=== PATIENT | male | born 1935 | race Caucasian/White ===

== ENCOUNTER 2017-11-19 17:42 | Observation (INO) ==
--- NOTE | 2017-11-19 18:33 | ED ---
HPI General Chief Complaint: Chest Pain Stated Complaint: Chest pain Time Seen by Provider: 11/19/17 18:14 Source: patient Mode of arrival: ambulatory Limitations: no limitations History of Present Illness HPI narrative: Patient is a 82-year-old male presenting to emerge from for evaluation of chest pain. Patient states the pain started at 1630, it was midsternal and left anterior chest with radiation to his back. Pain was a 10 out of 10 at that time, he states he felt as if he was going to pass out and lightheaded. He reports that he had a headache which was waxing and waning this afternoon. He denies any headache now. Patient denies any nausea, vomiting, shortness of breath. Symptom onset was sudden, symptoms are moderate in nature. There are no alleviating factors. Symptoms occurred at rest. Patient reports a history of diabetes, COPD, hypertension, hyperlipidemia. He was a former smoker. He had a nuclear stress test several years ago. He denies any history of heart attack. Complete Quality Measures for STEMI Alert Patients Related Data Home Medications Medication Instructions Recorded Confirmed atorvastatin 80 mg PO DAILY 11/19/17 11/19/17 ferrous sulfate 325 mg PO DAILY 11/19/17 11/19/17 fluticasone-vilanterol [Breo 1 inh INHALATION DAILY 11/19/17 11/19/17 Ellipta] furosemide [Lasix] 40 mg PO BID 11/19/17 11/19/17 glipizide 5 mg PO DAILY 11/19/17 11/19/17 losartan-hydrochlorothiazide 1 tab PO DAILY 11/19/17 11/19/17 metformin 1,000 mg PO BID 11/19/17 11/19/17 pantoprazole [Protonix] 40 mg PO DAILY 11/19/17 11/19/17 potassium chloride 10 meq PO DAILY 11/19/17 11/19/17 Allergies Allergy/AdvReac Type Severity Reaction Status Date / Time Horse/Equine Containing Allergy Severe Hives Unverified 11/19/17 18:15 Products Review of Systems Except as stated in HPI: all other systems reviewed are negative [facility] Medical History Medical History COPD (chronic obstructive pulmonary disease) (Acute) Diabetes (Acute) GERD (gastroesophageal reflux disease) (Acute) Hernia (Acute) Hyperchloremia (Acute) Hypertension (Acute) Surgical History Surgical History History of cholecystectomy (Acute) History of nasal surgery (Acute) Social History Social History Substance History: No History of Abuse Smoking Status: Former smoker How Often Do You Have a Drink Containing Alcohol: Never Recent Travel in [facility] within the Last 8 Weeks: No Recent Out of Country Travel within the Last 8 Weeks: No Immunization History Tetanus Immunization: Never Vaccinated Hx Influenza Vaccine This Season: No Exam Narrative Exam Narrative: GENERAL: Well-developed, well nourished, alert elderly male. Presenting in no acute distress. SKIN: Focused skin assessment warm/dry. HEAD: Atraumatic. Normocephalic. EYES: Pupils equal and round. No scleral icterus. No injection or drainage. ENT: No nasal bleeding or discharge. Mucous membranes pink and moist. NECK: Trachea midline. No JVD. CARDIOVASCULAR: Regular rate and rhythm. No murmur appreciated. RESPIRATORY: No accessory muscle use. Diminished bilaterally in bases, scattered faint expiratory wheezes. GASTROINTESTINAL: Abdomen soft, non-tender, nondistended. Hepatic and splenic margins not palpable. MUSCULOSKELETAL: No obvious deformities. No clubbing. No cyanosis. No edema. NEUROLOGICAL: Awake and alert. No obvious cranial nerve deficits. Motor grossly within normal limits. Normal speech. PSYCHIATRIC: Appropriate mood and affect; insight and judgment normal. Course Initial Documented Vital Signs Temperature 97.8 F 11/19/17 17:48 Pulse Rate 92 H 11/19/17 17:48 Respiratory Rate 20 11/19/17 17:48 Blood Pressure 144/67 H 11/19/17 17:48 Pulse Oximetry 98 11/19/17 17:48 Last Documented Vital Signs Temperature 97.8 F 11/19/17 17:48 Pulse Rate 87 11/19/17 18:25 Respiratory Rate 18 11/19/17 18:25 Blood Pressure 167/70 H 11/19/17 18:25 Pulse Oximetry 98 11/19/17 18:25 Medical Decision Making MDM Narrative Medical decision making narrative: Patient is an 82-year-old male that presented to the emergency department for evaluation of abrupt onset of chest pain that occurred at 1630 this afternoon. Patient is well-appearing, he is in no acute distress. Patient's vital signs are stable. Patient was given additional 243 mg of aspirin, Nitropaste was placed on his chest. Chest x-ray with no acute findings, labs reviewed, no acute abnormalities. Patient was given a DuoNeb treatment in the emergency department, this was ordered because patient missed his home dose of his medication. Patient will be admitted to the chest pain center, patient is agreeable, patient and family were advised in all findings. Admit orders placed. Differential Diagnosis Differential Diagnosis: ACS vs [place] vs GERD vs metabolic abnormality vs other Lab Data Lab results reviewed: Yes I reviewed the patient's lab results. Result diagrams: 11/19/17 18:31 08 18:31 Lab Results 11/19/17 11/19/17 11/19/17 Range/Units 18:31 18:31 18:31 WBC 6.5 (4.0-11.0) th/mm3 RBC 3.74 L (4.50-5.90) mil/mm3 Hgb 12.0 L (13.0-17.0) gm/dL Hct 34.8 L (39.0-51.0) % MCV 93.1 (80.0-100.0) fL MCH 32.1 (27.0-34.0) pg MCHC 34.4 (32.0-36.0) % RDW 14.8 (11.6-17.2) % Plt Count 301 (150-450) th/mm3 MPV 7.6 (7.0-11.0) fL Neut % (Auto) 77.4 H (16.0-70.0) % Lymph % (Auto) 10.2 (9.0-44.0) % [place] % (Auto) 7.4 (0.0-8.0) % Eos % (Auto) 4.3 H (0.0-4.0) % Baso % (Auto) 0.7 (0.0-2.0) % Neut # (Auto) 5.0 (1.8-7.7) th/mm3 Lymph # (Auto) 0.7 L (1.0-4.8) th/mm3 [place] # (Auto) 0.5 (0.0-0.9) th/mm3 Eos # (Auto) 0.3 (0.0-0.4) th/mm3 Baso # (Auto) 0.0 (0.0-0.2) th/mm3 WBC Differential . Differential Comment Auto diff final PT 9.9 (9.8-11.6) sec INR 1.0 Ratio APTT 23.0 L (24.3-30.1) sec Sodium (136-145) meq/L Potassium (3.5-5.1) meq/L Chloride (98-107) meq/L Carbon Dioxide (21.0-32.0) meq/L Anion Gap (5-15) meq/L BUN (7-18) mg/dL Creatinine (0.60-1.30) mg/dL Estimated GFR (>89) mL/min Random Glucose (74-106) mg/dL Calcium (8.5-10.1) mg/dL Magnesium (1.5-2.5) mg/dL Total Bilirubin (0.2-1.0) mg/dL AST (15-37) U/L ALT (12-78) U/L Alkaline Phosphatase (45-117) U/L Total Creatine Kinase (39-308) U/L Troponin I Less than 0.02 L (0.02-0.05) ng/mL Total Protein (6.4-8.2) g/dL Albumin (3.4-5.0) g/dL Lipase 122 (73-393) U/L 11/19/17 Range/Units 18:31 WBC (4.0-11.0) th/mm3 RBC (4.50-5.90) mil/mm3 Hgb (13.0-17.0) gm/dL Hct (39.0-51.0) % MCV (80.0-100.0) fL MCH (27.0-34.0) pg MCHC (32.0-36.0) % RDW (11.6-17.2) % Plt Count (150-450) th/mm3 MPV (7.0-11.0) fL Neut % (Auto) (16.0-70.0) % Lymph % (Auto) (9.0-44.0) % [place] % (Auto) (0.0-8.0) % Eos % (Auto) (0.0-4.0) % Baso % (Auto) (0.0-2.0) % Neut # (Auto) (1.8-7.7) th/mm3 Lymph # (Auto) (1.0-4.8) th/mm3 [place] # (Auto) (0.0-0.9) th/mm3 Eos # (Auto) (0.0-0.4) th/mm3 Baso # (Auto) (0.0-0.2) th/mm3 WBC Differential Differential Comment PT (9.8-11.6) sec INR Ratio APTT (24.3-30.1) sec Sodium 143 (136-145) meq/L Potassium 3.9 (3.5-5.1) meq/L Chloride 104 (98-107) meq/L Carbon Dioxide 29.7 (21.0-32.0) meq/L Anion Gap 9 (5-15) meq/L BUN 25 H (7-18) mg/dL Creatinine 1.21 (0.60-1.30) mg/dL Estimated GFR 57 L (>89) mL/min Random Glucose 102 (74-106) mg/dL Calcium 9.0 (8.5-10.1) mg/dL Magnesium 2.2 (1.5-2.5) mg/dL Total Bilirubin 0.8 (0.2-1.0) mg/dL AST 129 H (15-37) U/L ALT 76 (12-78) U/L Alkaline Phosphatase 105 (45-117) U/L Total Creatine Kinase 107 (39-308) U/L Troponin I (0.02-0.05) ng/mL Total Protein 6.4 (6.4-8.2) g/dL Albumin 3.7 (3.4-5.0) g/dL Lipase (73-393) U/L Imaging Data Radiologist's impression: Chest X-Ray 11/19/17 18:15 CONCLUSION: No acute findings. Stable scarring and cylindrical bronchiectasis left lower lobe. Discharge Plan Discharge Disposition Patient Disposition: 30 Still Patient Discharge Condition Condition: Stable Discharge Details Diagnosis: Chest pain Physicians Team ED Provider: Bishop Hawkins ED Midlevel Provider: Ivette Guillermo Primary Care Provider: Primary Care Dasha Castillo Attending Provider: Gentry Cortes Other Providers: [employer] Status ED Status: Admitted Observation Patient
[2017-11-19 18:50] LABS: Baso % (Auto) 0.7 % (0.0-2.0); Eos # (Auto) 0.3 th/mm3 (0.0-0.4); Eos % (Auto) 4.3 % (0.0-4.0); Hematocrit 34.8 % (39.0-51.0); Lymph # (Auto) 0.7 th/mm3 (1.0-4.8); Lymph % (Auto) 10.2 % (9.0-44.0); Mean Corpuscular HGB Conc 34.4 % (32.0-36.0); Mean Corpuscular Hemoglobin 32.1 pg (27.0-34.0); Mean Corpuscular Volume 93.1 fL (80.0-100.0); Mean Platelet Volume 7.6 fL (7.0-11.0); Mono # (Auto) 0.5 th/mm3 (0.0-0.9); Mono % (Auto) 7.4 % (0.0-8.0); Neut % (Auto) 77.4 % (16.0-70.0); Platelet Count 301 th/mm3 (150-450); Red Blood Count 3.74 mil/mm3 (4.50-5.90); Red Cell Distribution Width 14.8 % (11.6-17.2); White Blood Count 6.5 th/mm3 (4.0-11.0)
--- NOTE | 2017-11-19 18:55 | XR ---
EXAM DATE: 11/19/2017 6:51 PM EDT AGE/SEX: 82 years / Male INDICATIONS: . Chest pain CLINICAL DATA: This is the patient's initial encounter. Patient reports that signs and symptoms have been present for 1 day and indicates a pain score of 4/10. MEDICAL/SURGICAL HISTORY: . Hypertension. Chronic obstructive pulmonary disease. Gastroesophage al reflux disease. Hiatal hernia, Diabetes. . Cholecystectomy. Vasectomy COMPARISON: [facility] [place], [place], CT ABDOMEN & PELVIS W CONTRAST, 07/25/2015. . FINDINGS: There is chronic scarring and cylindrical bronchiectasis at the left lung base which is similar to pr ior study from 2016. No new infiltrate or effusion. No pneumothorax. Heart size within normal limits. Stable calcified granulomata in the lungs. CONCLUSION: No acute findings. Stable scarring and cylindrical bronchiectasis left lower lobe. Electronically signed by: Sachin Rodriguez MD 11/19/2017 6:53 PM EDT
[2017-11-19 19:04] LABS: Prothrombin Time 9.9 sec (9.8-11.6)
[2017-11-19 19:07] LABS: Albumin 3.7 g/dL (3.4-5.0); Anion Gap 9 meq/L (5-15); Aspartate Aminotransferase 129 U/L (15-37); Blood Urea Nitrogen 25 mg/dL (7-18); Carbon Dioxide 29.7 meq/L (21.0-32.0); Chloride 104 meq/L (98-107); Glomerular Filtration Rate 57 mL/min (>89); Glucose,Random 102 mg/dL (74-106); Magnesium 2.2 mg/dL (1.5-2.5); Potassium 3.9 meq/L (3.5-5.1); Sodium 143 meq/L (136-145)
[2017-11-19 19:08] LABS: Alanine Aminotransferase 76 U/L (12-78)
[2017-11-19 19:09] LABS: Lipase 122 U/L (73-393)
[2017-11-19 19:11] LABS: Alkaline Phosphatase 105 U/L (45-117); Creatine Kinase 107 U/L (39-308); Total Protein 6.4 g/dL (6.4-8.2)
[2017-11-19] MEDS ORDERED: Acetaminophen 500 MG Tablet PO PRN (19:17)
[2017-11-19] MEDS ORDERED: Aluminum/Magnesium/Simethacone Susp 30 ML UDC PO ONE (19:23)
[2017-11-19 19:30] LABS: Creatine Kinase MB 3.3 ng/mL (0.5-3.6)
--- NOTE | 2017-11-19 21:52 | CT ---
EXAM DATE: 11/19/2017 9:25 PM EDT AGE/SEX: 82 years / Male INDICATIONS: Chest and back pain. CLINICAL DATA: This is the patient's initial encounter. Patient reports that signs and symptoms have been present for 1 day and indicates a pain score of 10/10. MEDICAL/SURGICAL HISTORY: Diabetes. Chronic obstructive pulmonary disease. Gastroesophageal reflu x disease. Hypertension. Cholecystectomy. RADIATION DOSE: 8.32 CTDI (mGy) COMPARISON: No prior exams available for comparison. TECHNIQUE: Volumetric scanning was performed using a multi-row detector CT scanner during bolus infu nahid of 90 ml Omnipaque 350 (iohexol) nonionic water-soluble contrast as a single exam dose. The da ta was post processed with a variety of visualization algorithms including full volume maximum intens ity projection, multi-planar sliding thin slab reformation, curved planar reformation, and surface re ndering techniques. Using automated exposure control and adjustment of the mA and/or kV according to patient size, radiation dose was kept as low as reasonably achievable to obtain optimal diagnostic q uality images. DICOM format image data is available electronically for review and comparison. FINDINGS: There is no thoracic or abdominal aortic dissection or significant aneurysmal dilatation. There is mi ld to moderate atherosclerotic plaque present throughout the aorta. Moderate coronary artery calcifications noted. Calcified granulomata noted in the upper right lung. T here is chronic bronchiectasis, peribronchial thickening, scarring and distal airway disease at the l eft lung very similar to an abdomen CT from 2016. Stable small liver cysts present. No acute findings in the spleen, adrenals, kidneys or pancreas. Pre vious cholecystectomy. There is colonic diverticulosis without diverticulitis. Small right-sided bladder diverticulum. CONCLUSION: 1. Negative for thoracic and abdominal dissection or aneurysm. 2. Colonic diverticulosis without diverticulitis. 3. Stable small hepatic cysts. Electronically signed by: Sachin Rodriguez MD 11/19/2017 9:51 PM EDT
[2017-11-19 22:04] LABS: Creatine Kinase 104 U/L (39-308)
[2017-11-19] MEDS ORDERED: Temazepam 15 MG Capsule PO PRN (22:58)
[2017-11-19 23:02] LABS: Bilirubin,Urine Negative (Negative); Clarity,Urine Clear (Clear); Color,Urine Yellow (Yellw/Straw); Glucose,Urine (UA) Negative (Negative); Hyaline Casts,Urine 13 /lpf (0-3); Leukocyte Esterase,Urine Trace (Negative); Mucus,Urine Few /lpf (Occasional); Nitrite,Urine Negative (Negative); Specific Gravity,Urine 1.013 (1.002-1.035)
[2017-11-20 02:10] LABS: Creatine Kinase 85 U/L (39-308)
[2017-11-20 04:31] VITALS: O2SAT 100
[2017-11-20 08:22] VITALS: TEMP 97.8
--- NOTE | 2017-11-20 08:53 | P.HPCA ---
History of Present Illness Primary Care Physician: Finn MONGE Chief Complaint: Epigastric pain History of Present Illness: 82-year-old male with history of COPD, type 2 diabetes, hypertension, hyperlipidemia, and O2 dependent nightly presents emergency room for further evaluation epigastric pain. Onset 4:30 PM while eating a donut and drinking a cup of coffee. Location epigastric characterized as a moderate to severe ache. No radiation. Associated symptoms included nausea, headache, acid reflex, and diaphoresis. No vomiting. to discern if he was dyspneic during time due to chronic dyspnea. Duration waxed and waned in intensity for 3 hours. No no precipitating or relieving factors. Endorses similar pain approximately 5 months ago when discomfort awakening him from sleep. At that time, he sat on side of bed and after belching discomfort subsided. No further discomfort since 730pm. No recent illness. No known coronary artery disease. Has been his general state of health. Nuclear stress test approximately 2 years reported to be normal. - Diagnosis (1) Chest pain of unknown etiology (2) H/O: hypertension (3) GERD (gastroesophageal reflux disease) (4) H/O type 2 diabetes mellitus Review of Systems All other systems reviewed negative except as stated in HPI Comments: 02/2l nasal cannula at during sleep and occasional with activity. Activity limited due to exertional dyspnea for approx 9 years. [facility] - History History Provided By: Patient - Medical History Medical History: Medical History (Last Updated 11/20/17 @ 09:15 by YOLANDE Fleming) COPD (chronic obstructive pulmonary disease) Dependence on nocturnal oxygen therapy Diabetes GERD (gastroesophageal reflux disease) Hernia Hyperchloremia Hypertension Left inguinal hernia - Surgical History Surgical History: Surgical History (Last Updated 11/20/17 @ 09:15 by YOLANDE Fleming) H/O left knee surgery H/O right knee surgery History of cholecystectomy History of laparoscopic cholecystectomy History of nasal surgery History of right-sided carotid endarterectomy - Family History Family History: Family History (Last Updated 11/20/17 @ 09:15 by YOLANDE Fleming) Father Family history of acute myocardial infarction - Tobacco History Second Hand Smoke Exposure: No Tobacco Use In Past 30 Days: No Smoking Status: Former smoker (quit 22 years ago) Cigarettes Per Day: 0.5 Years Smoked: 40 - Alcohol History How Often Do You Have a Drink Containing Alcohol: Never - Substance Use History Substance History: No History of Abuse - Travel History History of Recent Travel: No Recent Travel in the [place] Within the Last 8 Weeks: No Recent Travel Out of the Country Within the Last 8 Weeks: No - Immunization History Tetanus Immunization: Never Vaccinated Hx Influenza Vaccine This Season: No Medications and Allergies Active Medications: Active Medications Acetaminophen (Tylenol) 500 mg PO Q4H PRN PRN Reason: HEADACHE Last Admin: 11/19/17 19:34 Dose: 500 mg Albuterol (Duoneb Neb (Prn)) 1 ampul NEB QID NEB PRN PRN Reason: SHORTNESS OF BREATH Last Admin: 11/19/17 23:25 Dose: 1 ampul Atorvastatin Calcium (Lipitor) 80 mg PO DAILY [facility] Clonidine HCl (Catapres) 0.1 mg PO Q6H PRN PRN Reason: SYS BP GREATER THAN 180 MMHG Ferrous Sulfate (Ferosul) 325 mg PO DAILY [facility] Fluticasone/Vilanterol (Breo Ellipta 100/25 Mcg Inh) puff INH DAILY [facility] Furosemide (Lasix) 40 mg PO BID [facility] Hydrochlorothiazide (Hydrodiuril) 25 mg PO DAILY [facility] Losartan Potassium (Cozaar) 100 mg PO DAILY [facility] Nitroglycerin (Nitro-Bid 2% Oint) 0.5 inch TOPICAL Q6HR [facility] Last Admin: 11/20/17 05:49 Dose: 0.5 inch Ondansetron HCl (Zofran Inj) 4 mg IV.PUSH Q6H PRN PRN Reason: NAUSEA Pantoprazole Sodium (Protonix) 40 mg PO DAILY [facility] Potassium Chloride (Klor-Con 10) 10 meq PO DAILY [facility] Sodium Chloride (Ns Flush) 2 ml IV.FLUSH BID [facility] Last Admin: 11/19/17 23:59 Dose: 2 ml Sodium Chloride (Ns Flush) 2 ml IV.FLUSH PRN PRN PRN Reason: FLUSH AFTER USING IV ACCESS Temazepam (Restoril) 15 mg PO HS PRN PRN Reason: SLEEP Allergies Allergy/AdvReac Type Severity Reaction Status Date / Time Horse/Equine Containing Allergy Severe Hives Unverified 11/19/17 18:15 Products Home Medications Medication Instructions Recorded Confirmed Type atorvastatin 80 mg PO DAILY 11/19/17 11/19/17 History ferrous sulfate 325 mg PO DAILY 11/19/17 11/19/17 History fluticasone-vilanterol [Breo 1 inh INHALATION DAILY 11/19/17 11/19/17 History Ellipta] furosemide [Lasix] 40 mg PO BID 11/19/17 11/19/17 History glipizide 5 mg PO DAILY 11/19/17 11/19/17 History losartan-hydrochlorothiazide 1 tab PO DAILY 11/19/17 11/19/17 History metformin 1,000 mg PO BID 11/19/17 11/19/17 History pantoprazole [Protonix] 40 mg PO DAILY 11/19/17 11/19/17 History potassium chloride 10 meq PO DAILY 11/19/17 11/19/17 History Exam Vital signs: Vital Signs 11/19/17 17:48 11/19/17 18:25 11/19/17 19:32 Temperature 97.8 F Pulse Rate 92 H 87 Respiratory Rate 20 18 Blood Pressure 144/67 H 167/70 H Pulse Oximetry 98 98 97 11/19/17 19:33 11/19/17 22:19 11/19/17 23:00 Temperature Pulse Rate 80 76 Respiratory Rate 18 18 Blood Pressure 172/72 H Pulse Oximetry 97 98 11/19/17 23:09 11/19/17 23:29 11/20/17 04:00 Temperature 98.5 F 97.6 F Pulse Rate 73 80 70 Respiratory Rate 18 16 16 Blood Pressure 144/67 H 126/61 Pulse Oximetry 99 99 100 11/20/17 08:00 Temperature 97.8 F Pulse Rate 71 Respiratory Rate 14 Blood Pressure 203/87 H Pulse Oximetry 100 Intake & Output 11/19/17 11/20/17 11/20/17 18:59 06:59 18:59 Intake Total 240 / 240 Balance 240 / 240 Weight 95.254 kg 95 kg Intake: Oral 240 / 240 Other: # Voids 1 Narrative: Very pleasant elderly male mildly dyspneic during conversation in no acute distress. - Routine HEENT Exam Head: Present: normocephalic, atraumatic - Routine Neck Exam Present: supple, full ROM. Absent: JVD, carotid bruit - Routine Chest/Breast/Axilla Exam Chest wall: Absent: tenderness - Routine Respiratory Exam Present: prolonged expiratory phase, distant breath sounds, diminished air movement. Absent: respiratory distress, rhonchi, wheezes, crackles - Routine Cardiovascular Exam Present: RRR. Absent: murmur, gallop, rubs - Routine Abdominal Exam Present: soft, normoactive bowel sounds. Absent: tenderness, distended, rebound , guarding - Routine Extremities Exam Present: full ROM, pulses intact. Absent: edema - Routine Skin Exam Present: intact, dry, warm Comments: surgical scar right sided neck, bilateral knees - Routine Neurological Exam Present: alert, oriented X3, CN II-XII intact, moving all extremities, normal tone, normal speech - Routine Psychiatric Exam Present: normal affect, normal thought process, cooperative, good insight, good judgment Results 11/19/17 18:31 11/19/17 18:31 Cardiac Enzymes 11/19/17 11/19/17 11/19/17 Range/Units 18:31 18:31 20:09 AST 129 H (15-37) U/L CK-MB (CK-2) 3.3 (0.5-3.6) ng/mL Troponin I Less than 0.02 L Less than 0.02 L (0.02-0.05) ng/mL 11/20/17 Range/Units 01:30 AST (15-37) U/L CK-MB (CK-2) (0.5-3.6) ng/mL Troponin I Less than 0.02 L (0.02-0.05) ng/mL Coagulation 11/19/17 Range/Units 18:31 PT 9.9 (9.8-11.6) sec APTT 23.0 L (24.3-30.1) sec CBC 11/19/17 Range/Units 18:31 WBC 6.5 (4.0-11.0) th/mm3 RBC 3.74 L (4.50-5.90) mil/mm3 Hgb 12.0 L (13.0-17.0) gm/dL Hct 34.8 L (39.0-51.0) % Plt Count 301 (150-450) th/mm3 Neut # (Auto) 5.0 (1.8-7.7) th/mm3 Lymph # (Auto) 0.7 L (1.0-4.8) th/mm3 [place] # (Auto) 0.5 (0.0-0.9) th/mm3 Eos # (Auto) 0.3 (0.0-0.4) th/mm3 Baso # (Auto) 0.0 (0.0-0.2) th/mm3 Comprehensive Metabolic Panel 11/19/17 Range/Units 18:31 Sodium 143 (136-145) meq/L Potassium 3.9 (3.5-5.1) meq/L Chloride 104 (98-107) meq/L Carbon Dioxide 29.7 (21.0-32.0) meq/L BUN 25 H (7-18) mg/dL Creatinine 1.21 (0.60-1.30) mg/dL Calcium 9.0 (8.5-10.1) mg/dL AST 129 H (15-37) U/L ALT 76 (12-78) U/L Alkaline Phosphatase 105 (45-117) U/L Total Protein 6.4 (6.4-8.2) g/dL Albumin 3.7 (3.4-5.0) g/dL Intake and Output 11/19/17 11/20/17 11/20/17 22:59 06:59 14:59 Intake Total 240 / 240 Balance 240 / 240 Intake: Oral 240 / 240 Other: # Voids 1 Weight 95.254 kg 95 kg EKG interpretations - EKG EKG results cardiology: sinus rhythm, normal axis (nsr, nonspecific ST-T segment changes) Caprini VTE Risk Assessment Caprini VTE Risk Assessment: Moderate/High Risk (score >= 2) Caprini Risk Assessment Model: Point Value = 1 Point Value = 2 Point Value = 3 Point Value = 5 Age 41-60 Minor surgery BMI > 25 kg/m2 Swollen legs Varicose veins or History of unexplained or recurrent spontaneous Oral contraceptives or hormone replacement Sepsis (< 1 month) Serious lung disease, including pneumonia (< 1 month) Abnormal pulmonary function Acute myocardial infarction Congestive heart failure (< 1 month) History of inflammatory bowel disease Medical patient at bed rest Age 61-74 Arthroscopic surgery Major open surgery (> 45 min) Laparoscopic surgery (> 45 min) Malignancy Confined to bed (> 72 hours) Immobilizing plaster cast Central venous access Age >= 75 History of VTE Family history of VTE Factor V Leiden Prothrombin [id number] Lupus anticoagulant Anticardiolipin antibodies Elevated serum homocysteine Heparin-induced thrombocytopenia Other congenital or acquired thrombophilia Stroke (< 1 month) Elective arthroplasty Hip, pelvis, or leg fracture Acute spinal cord injury (< 1 month) Prophylaxis Regimen: Total Risk Factor Score Risk Level Prophylaxis Regimen 0-1 Low Early ambulation 2 Moderate Order ONE of the following: *Sequential Compression Device (SCD) *Heparin 5000 units SQ BID 3-4 Higher Order ONE of the following medications: *Heparin 5000 units SQ TID *Enoxaparin/Lovenox 40 mg SQ daily (WT < 150 kg, CrCl > 30 mL/min) *Enoxaparin/Lovenox 30 mg SQ daily (WT < 150 kg, CrCl > 10-29 mL/min) *Enoxaparin/Lovenox 30 mg SQ BID (WT < 150 kg, CrCl > 30 mL/min) AND/OR *Sequential Compression Device (SCD) 5 or more Highest Order ONE of the following medications: *Heparin 5000 units SQ TID (Preferred with Epidurals) *Enoxaparin/Lovenox 40 mg SQ daily (WT < 150 kg, CrCl > 30 mL/min) *Enoxaparin/Lovenox 30 mg SQ daily (WT < 150 kg, CrCl > 10-29 mL/min) *Enoxaparin/Lovenox 30 mg SQ BID (WT < 150 kg, CrCl > 30 mL/min) AND *Sequential Compression Device (SCD) Assessment and Plan - Assessment (1) Chest pain of unknown etiology Code(s): R07.89 - Other chest pain Status: Acute Plan: Admitted to chest pain center. ACS ruled out with 3 sets of EKGs and cardiac enzymes. Monitored on telemetry overnight. Will be seen and evaluated by Dr. Gentry Cortes. Discomfort appears to be GI related, although due to multiple risk factors cardiac testing would not be unreasonable. Further testing will be decided after he evaluation by surgical garment assembly supervisor. Discussed this with patient and he is agreeable to plan of care. (2) H/O: hypertension Code(s): Z86.79 - Personal history of other diseases of the circulatory system Status: Chronic Plan: Continue home medications including losartan, HCTZ, and furosemide. Clonidine 0.1 mg q6h PRN for sbp greater than 180 or dbp greater than 100. Discussed with RN. (3) GERD (gastroesophageal reflux disease) Code(s): K21.9 - Gastro-esophageal reflux disease without esophagitis Status: Chronic Plan: Continue Protonix. (4) H/O type 2 diabetes mellitus Code(s): Z86.39 - Personal history of other endocrine, nutritional and metabolic disease Status: Chronic Plan: Hold metformin. H&P: Quality - VTE Deep Vein Thrombosis/Pulmonary Embolism Present on Admission: No (3) GERD (gastroesophageal reflux disease) Qualifiers: Esophagitis presence: esophagitis presence not specified Qualified Code(s): K21.9 - Gastro-esophageal reflux disease without esophagitis
[2017-11-20] MEDS ORDERED: Furosemide 40 MG Tablet PO SCH (09:00)
[2017-11-20] MEDS ORDERED: hydroCHLOROthiazide 25 MG Tablet PO SCH (09:00)
[2017-11-20] MEDS ORDERED: Ferrous Sulfate 325 MG Tablet PO SCH (09:00)
[2017-11-20] MEDS ORDERED: Regadenoson Inj 0.4 MG/5 ML Syringe IV.PUSH ONE (12:04)
--- NOTE | 2017-11-20 13:59 | TR ---
Date Performed: 11/20/2017 Time Performed: 11:57:00 DOCTOR: Gentry Cortes DRUG LIST: CLINICAL HISTORY: REASON FOR TEST: REASON FOR ENDING: OBSERVATION: CONCLUSION: COMMENTS: Lexiscan stress test was performed under standard four minute protocol. Radionuclide was injected one minute prior to ending the test. No electrocardiographic abormalities were present t o suggest ischemia. Nuclear imaging and interpretation are pending.
--- NOTE | 2017-11-20 14:18 | NM ---
EXAM DATE: 11/20/2017 1:49 PM EDT AGE/SEX: 82 years / Male INDICATIONS:Angina. . Chest pain. CLINICAL DATA: This is the patient's initial encounter. Patient reports that signs and symptoms have been present for 1 day and indicates a pain score of 2/10. MEDICAL/SURGICAL HISTORY: Hypertension. Chronic obstructive pulmonary disease. Diabetes melli tus type II. Gastroesophageal reflux disease. Nocturnal oxygen therapy. Cholecystectomy. Bilateral knee surgery. Right-sided carotid endarterectomy. COMPARISON: No prior exams available for comparison. DOSE: 8.8 mCi Tc 99m Myoview at rest 27.3 mCi [id number] at stress 0.4 mg Lexiscan STRESS SYMPTOMS: Lightheaded and chest pain. EJECTION FRACTION: >70 % TECHNIQUE: The patient underwent pharmacologic stress with infusion of prescribed dose. Continuous ECG tracing was monitored during stress. Gated SPECT imaging was performed after stress and conventi onal SPECT imaging was performed at rest. The examination was performed on a SPECT/CT scanner, both attenuation and non-corrected datasets were reviewed. FINDINGS: Distribution: The maximum perfused segment at stress is in the lateral wall. Perfusion Study: The pattern of perfusion at stress is within normal limits. Gated Study: There are intact wall motion and wall thickening without hypokinetic or dyskinetic segm ents. The ejection fraction is calculated at >70%. RISK CATEGORY: 1-low risk. CONCLUSION: No reversible perfusion defects. No focal wall motion abnormalities. Electronically signed by: Harrison Duron MD 11/20/2017 2:16 PM EDT
--- NOTE | 2017-11-20 15:04 | ECG ---
Date Performed: 11/19/2017 Time Performed: 23:05:27 PTAGE: 82 years EKG: Sinus rhythm Poor R wave progression PREVIOUS TRACING : 11/19/2017 18.21 Since previous tracing, no significant change noted DOCTOR: Gentry Cortes Interpretating Date/Time 11/20/2017 15:03:21
--- NOTE | 2017-11-20 15:11 | ECG ---
Date Performed: 11/19/2017 Time Performed: 18:21:48 PTAGE: 82 years EKG: Sinus rhythm Poor R wave progression ABNORMAL ECG Compared to PREVIOUS TRACING ,Poor R wave progression is new. DOCTOR: Gentry Cortes Interpretating Date/Time 11/20/2017 15:10:12
[2017-11-24 17:54] VITALS: PULSE 75; RESP 18
[2017-11-24 17:55] VITALS: BP 156/64
== END 2017-11-20 17:53 | disposition home or self-care (01) ==
LOC: NEDA 17:42 → NEPFCDU 17:42 → NEPC 17:42 → NEPFCDU 22:34
DX: J44.9 Chronic obstructive pulmonary disease, unspecified; Z90.49 Acquired absence of other specified parts of digestive tract; K21.9 Gastro-esophageal reflux disease without esophagitis; R07.89 Other chest pain; R94.31 Abnormal electrocardiogram [ECG] [EKG]; Z79.51 Long term (current) use of inhaled steroids; E11.9 Type 2 diabetes mellitus without complications; Z87.891 Personal history of nicotine dependence; E87.8 Other disorders of electrolyte and fluid balance, not elsewhere classified; E78.5 Hyperlipidemia, unspecified; I10 Essential (primary) hypertension; Z99.81 Dependence on supplemental oxygen; Z82.49 Family history of ischemic heart disease and other diseases of the circulatory system